=== PATIENT | female | born 1955 | race African-American/Black ===

== ENCOUNTER 2017-07-28 12:50 | Emergency (ER) | payer OTHER ==
[~2017-07-28] VITALS: Ht 162.6 cm; Wt 43.5 kg
[~2017-07-28 12:50] MED LIST: CARI350T PO; CIPR500T5 PO; DIAZ10TA4 PO; HYDR-548 PO; METR500T PO; PANT40TA4 PO
--- NOTE | 2017-07-28 12:59 | NUR ---
61 yo female bb self. patient is alert and oriented x 3, c/o abd pain. patient assisted to er bed, skin warm and dry, resp even and unlabored. awaiting orders from provider, will continue to monitor
[2017-07-28] MEDS ORDERED: DIAZEPAM 5 MG TABLET ONE (13:24)
[2017-07-28 13:26] LABS: BASOPHILS % (AUTO) 0.6 % (0.0-2.0); EOSINOPHILS % (AUTO) 0.7 % (0.0-6.0); HEMATOCRIT 36 % (33-45); HEMOGLOBIN 12.4 g/dL (11.5-14.8); LYMPHOCYTES # (AUTO) 1.7 /CMM (0.8-4.8); LYMPHOCYTES % (AUTO) 24.3 % (20.0-44.0); MEAN CORPUSCULAR HGB CONC 34 g/dl (31.0-36.0); MEAN CORPUSCULAR VOLUME 95 fL (82-100); MONOCYTES # (AUTO) 0.4 /CMM (0.1-1.30); MONOCYTES % (AUTO) 5.7 % (2.0-12.0); NEUTROPHILS # (AUTO) 4.8 /CMM (1.8-8.9); NEUTROPHILS % (AUTO) 68.7 % (43.0-81.0); PLATELET COUNT (AUTO) 266 /CMM (150-450); RDW COEFFICIENT OF VARIATION 13.4 (11.5-15.0); WHITE BLOOD COUNT (AUTO) 6.9 K/uL (4.3-11.0)
[2017-07-28 13:29] LABS: APPEARANCE,URINE Clear (CLEAR); BILIRUBIN,URINE Negative (NEGATIVE); BLOOD, URINE Negative Ery/uL (NEGATIVE); COLOR,URINE Yellow (YELLOW); KETONES,URINE Negative (NEGATIVE); LEUKOCYTE ESTERASE ,URINE Negative (NEGATIVE); NITRITE, URINE Negative (NEGATIVE); PH,URINE 8.5 (5.0-8.0); PROTEIN,URINE Negative (NEGATIVE); UGLUCOSE Negative (NEGATIVE); UROBILINOGEN,URINE 0.2 EU/dL (0.2)
[2017-07-28] MEDS ORDERED: DIAZEPAM 10 MG TABLET PO ONE (13:30)
[2017-07-28 13:39] LABS: CALCIUM, SERUM 8.9 mg/dL (8.5-10.1); CREATININE 0.8 mg/dL (0.6-1.3); POTASSIUM 3.7 mmol/L (3.5-5.1)
[2017-07-28 13:45] LABS: ALBUMIN 3.7 g/dL (3.4-5.0); BILIRUBIN,DIRECT 0.1 mg/dL (0.0-0.2); BILIRUBIN,TOTAL 0.2 mg/dL (0.2-1.0); TOTAL PROTEIN, SERUM 7.3 g/dL (6.4-8.2)
[2017-07-28 13:54] VITALS: BP 171/100
--- NOTE | 2017-07-28 13:55 | NUR ---
Patient discharged to home in stable condition. Written and verbal after care instructions given. Patient verbalizes understanding of instruction. pt ambulatory with a steady gait VITAL SIGNS WITHIN NORMAL LIMITS.
== END 2017-07-28 13:55 | disposition home or self-care (01) ==
LOC: ER 12:52
DX: R10.9 Unspecified abdominal pain (principal); F41.9 Anxiety disorder, unspecified; I10 Essential (primary) hypertension; J44.9 Chronic obstructive pulmonary disease, unspecified; I25.10 Atherosclerotic heart disease of native coronary artery without angina pectoris; F17.210 Nicotine dependence, cigarettes, uncomplicated; Z88.0 Allergy status to penicillin
CPT/HCPCS: 36415; 80048-TC; 80076-TC; 81000-TC; 85025-TC; A4606; Z7610

== ENCOUNTER 2019-02-04 06:34 | Emergency (ER) | payer OTHER ==
[~2019-02-04] VITALS: Ht 154.9 cm; Wt 43.1 kg
[~2019-02-04 06:34] MED LIST changes: +HYDR-4354 PO; -HYDR-548 PO
--- NOTE | 2019-02-04 06:40 | NUR ---
PT [id number] FROM HOME C/O COUGH AND NASAL CONGESTION X2 DAYS PER EMS. +EPITAXIS, -FEVER. PT WAS DISCHARGED RECENTLY AND DID NOT FILL HER PRESCRIPTION FOR VALIUM. PT APPEARS TO BE ANXIOUS. NAD NOTED. RESP EVEN AND UNLABORED. PT ON MONITOR IN BED 11. WILL CONTINUE TO MONITOR.
[2019-02-04] MEDS ORDERED: DIAZEPAM 5 MG TABLET ONE (06:46)
[2019-02-04] MEDS ORDERED: DIAZEPAM 10 MG TABLET PO ONE (07:00)
--- NOTE | 2019-02-04 07:13 | NUR ---
RECEIVED REPORT FROM JANET MISHRA FOR TOO, PT IS AAOX4, NOT IN RESPIRATORY DISTRESS, V/S STABLE, KEPT RESTED AND COMFORTABLE, WILL CONTINUE TO MONITOR.
--- NOTE | 2019-02-04 07:28 | NUR ---
PT WANTS TO WALKED OUT OF THE HOSPITAL, AWARE.
--- NOTE | 2019-02-04 07:33 | NUR ---
Patient eloped from facility. ER MD notified.
[2019-02-04 07:46] VITALS: BP 136/82
== END 2019-02-04 07:46 | disposition left against medical advice (07) ==
LOC: ER 06:35
DX: F41.9 Anxiety disorder, unspecified (principal); R04.0 Epistaxis; R00.2 Palpitations; J44.9 Chronic obstructive pulmonary disease, unspecified; I25.10 Atherosclerotic heart disease of native coronary artery without angina pectoris; I10 Essential (primary) hypertension; F17.210 Nicotine dependence, cigarettes, uncomplicated; F12.10 Cannabis abuse, uncomplicated; Z98.890 Other specified postprocedural states; Z88.0 Allergy status to penicillin

== ENCOUNTER 2021-05-13 09:26 | Inpatient (IN) | payer MEDICARE, OTHER ==
[~2021-05-13] VITALS: Ht 162.6 cm; Wt 43.1 kg
[~2021-05-13 09:26] MED LIST changes: -PANT40TA4 PO; +PANT40TA49 PO
--- NOTE | 2021-05-13 09:40 | NUR ---
TO ER BED 10, BIBRA FROM HOME C/O SUBSTERNAL CHEST PAIN STARTED LAST NIGHT THAT RADIATES TO LEFT ARM AND NECK P/S 12/01, GIVEN ASPIRIN AND NITRO BEST SECOND JOBS, UPON REASSESSMENT P/S 10/31, AAOX3, BREATHING EVEN AND NON LABORED, CONNECTED TO MONITOR, AWAITING MD ORDERS
[2021-05-13 10:08] LABS: BASOPHILS % (AUTO) 0.9 % (0.0-2.0); EOSINOPHILS % (AUTO) 2.6 % (0.0-6.0); HEMATOCRIT 38 % (33-45); HEMOGLOBIN 12.2 g/dL (11.5-14.8); LYMPHOCYTES # (AUTO) 1.3 K/uL (0.8-4.8); MEAN CORPUSCULAR HGB CONC 33 g/dl (31.0-36.0); MEAN CORPUSCULAR VOLUME 98 fL (82-100); MONOCYTES # (AUTO) 0.5 K/uL (0.1-1.30); MONOCYTES % (AUTO) 9.5 % (2.0-12.0); NEUTROPHILS # (AUTO) 2.9 K/uL (1.8-8.9); PLATELET COUNT (AUTO) 287 K/uL (150-450); RED BLOOD CELL COUNT(AUTO) 3.82 MIL/uL (4.0-5.2); WHITE BLOOD COUNT (AUTO) 4.9 K/uL (4.3-11.0)
--- NOTE | 2021-05-13 10:27 | NUR ---
MOVE SHEET SUBMITTED AND CALLED FOR TELE BED.
--- NOTE | 2021-05-13 10:34 | NUR ---
COVID SWAB DONE AND SENT TO LAB
[2021-05-13 10:41] LABS: CALCIUM, SERUM 8.5 mg/dL (8.5-10.1); CARBON DIOXIDE 27 mmol/L (21-32); CHLORIDE 104 mmol/L (98-107); CREATININE 0.8 mg/dL (0.6-1.3); GLUCOSE 94 mg/dL (74-106); POTASSIUM 3.6 mmol/L (3.5-5.1); SODIUM SERUM 138 mmol/L (136-145); UREA NITROGEN, BLOOD 12 mg/dL (7-18)
[2021-05-13] MEDS ORDERED: GABA-532 PO (11:15)
--- NOTE | 2021-05-13 12:51 | NUR ---
[facility] CALLED GEOLOGICAL SCOUT PAGED.
[2021-05-13] MEDS ORDERED: Z GUARD REMEDY 4 OZ OINT TP PRN (13:30)
[2021-05-13] MEDS ORDERED: DIAZEPAM 10 MG TABLET PO PRN (13:30)
[2021-05-13] MEDS ORDERED: MAGNESIUM HYDROXIDE 30 ML UDC PO PRN (13:30)
[2021-05-13] MEDS ORDERED: ACETAMINOPHEN 325 MG TABLET PO PRN (13:30)
[2021-05-13] MEDS ORDERED: ONDANSETRON HCL/PF 4 MG/2 ML VIAL IVP PRN (13:30)
[2021-05-13] MEDS ORDERED: ZOLPIDEM TARTRATE 5 MG TABLET PO PRN (13:30)
[2021-05-13] MEDS ORDERED: HYDROCODONE/APAP 10/325MG TABLET ONE (14:40)
[2021-05-13] MEDS: HYDROCODONE/APAP 10/325MG TABLET PO PRN (14:42)
--- NOTE | 2021-05-13 17:07 | NUR ---
DAUGHTERS: TANMAY [phone], YRN [phone]
--- NOTE | 2021-05-13 17:47 | NUR ---
US AT BEDSIDE
[2021-05-13] MEDS ORDERED: GABAPENTIN 300 MG CAPSULE ONE (18:04)
[2021-05-13] MEDS: GABAPENTIN 300 MG CAPSULE PO SCH (18:20)
--- NOTE | 2021-05-13 19:05 | NUR ---
GOT BED AFTER CHANGE OF SHIFT 320-2 PER HOUSE SUP.
[2021-05-13] MEDS: CARVEDILOL 3.125 MG TABLET PO SCH ×2 (21:00→21:22)
--- NOTE | 2021-05-13 22:27 | NUR ---
REPORT GIVEN TO JANET PRATT
--- NOTE | 2021-05-13 22:45 | NUR ---
PT TRANSFERRED UNDER ACLS
[2021-05-13 23:00] VITALS: BP 159/98
[2021-05-13] MEDS: MORPHINE SULFATE INJ 2 MG/ML DISP.SYRIN IV PRN (23:45)
--- NOTE | 2021-05-13 23:45 | NUR ---
VIDEO SOFTWARE ENGINEER NOTE Patient arrived to unit at 2245 via gurney accompanied by 2 staff members. Patient reports CP 6 or 7/10 currently that started 2 days ago, reports as burning sensation midchest extending to upper abdomen. Pupils equal and reactive to light. Can move all extremities evenly. Heart rate and rhythm regular. Attached to tele monitor promptly. Lung sounds clear. Bowel sounds active x4. Pt. has small tender bump not reddened or swollen on L inner thigh, thickened skin on scalp that pt. says she had been using a special shampoo for, and R trinh bruise upon skin assessment. Pt. is 95 pound and losing weight without trying d/t decreased appetite -requests FNS consult. Refuses all vaccines for fear of adverse effects. Reports being smoker less than a pack a day. Uses walker, cane at home. Agrees to bed rest. Oriented pt. to staff members, unit protocols, bed controls, remote, and safety precautions. Will continue to monitor.
[2021-05-14] VITALS: BP 159/98
[2021-05-14] MEDS: MAG HYDROX/AL HYDROX/SIMETH 30 ML UDC PO PRN ×2 (00:08→14:26)
--- NOTE | 2021-05-14 01:00 | NUR ---
Patient consented to CTCA and contrast -consent put in chart.
[2021-05-14 04:00] VITALS: BP 139/94
[2021-05-14] MEDS: MORPHINE SULFATE INJ 2 MG/ML DISP.SYRIN IV PRN ×2 (06:18→20:28)
--- NOTE | 2021-05-14 06:47 | NUR ---
RN CLOSING NOTES Patient continues to c/o chest pain overnight, though partially relieved with PRN morphine and bedrest. Has been SR 60s-70s on the monitor overnight. No other issues since admission. IS able to make needs known -all needs attended to by staff.
[2021-05-14 06:48] VITALS: BP 139/94
--- NOTE | 2021-05-14 06:51 | NUR ---
Has been NPO since 9 for AM procedure.
[2021-05-14 07:23] LABS: BASOPHILS # (AUTO) 0.1 K/uL (0.0-0.2); BASOPHILS % (AUTO) 0.9 % (0.0-2.0); HEMATOCRIT 40 % (33-45); HEMOGLOBIN 12.9 g/dL (11.5-14.8); LYMPHOCYTES # (AUTO) 1.9 K/uL (0.8-4.8); LYMPHOCYTES % (AUTO) 31.7 % (20.0-44.0); MEAN CORPUSCULAR HGB CONC 33 g/dl (31.0-36.0); MEAN CORPUSCULAR VOLUME 98 fL (82-100); MONOCYTES # (AUTO) 0.6 K/uL (0.1-1.30); MONOCYTES % (AUTO) 10.5 % (2.0-12.0); NEUTROPHILS # (AUTO) 3.3 K/uL (1.8-8.9); NEUTROPHILS % (AUTO) 54.9 % (43.0-81.0); PLATELET COUNT (AUTO) 293 K/uL (150-450); RED BLOOD CELL COUNT(AUTO) 4.04 MIL/uL (4.0-5.2)
--- NOTE | 2021-05-14 07:30 | NUR ---
ms rn received on bed, awake,alert,oriented x4,not in any form of distress, respirations even and unlabored,no sob noted, lungs are clear,abdomn soft,positive bowel sounds,denies pain at this time, will monitor patient.
[2021-05-14 07:57] LABS: CALCIUM, SERUM 9.5 mg/dL (8.5-10.1); CREATININE 0.8 mg/dL (0.6-1.3); PHOSPHORUS 3.6 mg/dL (2.5-4.9); POTASSIUM 4.2 mmol/L (3.5-5.1)
--- NOTE | 2021-05-14 08:30 | NUR ---
ms rn breakfast served,patient will have cta today w/ all papers ready.
[2021-05-14 08:35] VITALS: BP 145/95
--- NOTE | 2021-05-14 08:40 | NUR ---
ms rn patient went down for procedure.
[2021-05-14] MEDS ORDERED: METOPROLOL TARTRATE INJ 5 MG/5 ML AMPUL ONE (09:00)
[2021-05-14] MEDS ORDERED: ATORVASTATIN 10 MG TABLET PO SCH (09:00)
[2021-05-14] MEDS ORDERED: NITROGLYCERIN 0.4 MG/TAB BOTTLE ONE (09:00)
[2021-05-14] MEDS ORDERED: IV NS 0.9% 250 ML IV ONE (09:00)
[2021-05-14] MEDS ORDERED: NITROGLYCERIN 0.4 MG/TAB BOTTLE SL ONE (09:00)
[2021-05-14] MEDS ORDERED: ASPIRIN 81 MG TAB.CHEW PO SCH (09:00)
[2021-05-14] MEDS ORDERED: IOHEXOL-350 100 ML VIAL IV ONE (09:00)
[2021-05-14] MEDS ORDERED: CT SWABBABLE VALVE TRANS SET 1 EA INFUS.SET MC ONE (09:00)
[2021-05-14] MEDS: METOPROLOL TARTRATE INJ 5 MG/5 ML AMPUL IVP PRN ×2 (09:10→09:15)
--- NOTE | 2021-05-14 09:28 | NUR ---
CTA PROCEDURE WELL TOLERATED BY THE PT. V/S STABLE, KEPT RESTED AND COMFORTABLE. REPORT GIVEN TO JANET ROJAS FOR TOO.
[2021-05-14] MEDS: CARVEDILOL 3.125 MG TABLET PO SCH ×2 (09:56→20:07)
[2021-05-14] MEDS: HYDROCODONE/APAP 10/325MG TABLET PO PRN (14:27)
[2021-05-14 16:09] VITALS: BP 143/79
--- NOTE | 2021-05-14 16:20 | NUR ---
ms rn patient on bed, no distress noted.
[2021-05-14] MEDS: GABAPENTIN 300 MG CAPSULE PO SCH (18:50)
[2021-05-14 20:00] VITALS: BP 154/100
--- NOTE | 2021-05-14 20:35 | NUR ---
MS RN OPENING NOTES: RECEIVED PATIENT AWAKE IN BED, BED IN LOW POSITION, CALL LIGHTS WITHIN REACH, NO COMPLAIN OF PAIN AND DISCOMFORT AT THIS TIME,PATIENT IS A/OX4 ABLE TO MAKE NEEDS KNOWN, AMBULATORY WITH SUPERVISION, ON ROOM AIR NO RESP DISTRESS WAS OBSERVED, PATIENT KEPT CLEAN AND DRY, ALL NEEDS MET WILL CONTINUE TO MONITOR.
--- NOTE | 2021-05-15 07:11 | NUR ---
RN CLOSING NOTE PATIENT SLEEP IN BED COMFORTABLY, BED IN LOW POSITION, CALL LIGHTS WITHIN REACH, NO COMPLAIN OF PAIN AND DISCOMFORT AT THIS TIME, PATIENT IS AMBULATORY WITH SUPERVISION, REMIND PATIENT TO USE CALL LIGHTS, PATIENT IS A/O 4 ABLE TO MAKE NEEDS KNOWN, ON ROOM AIR SATURATING WELL. PATIENT KEPT CLEAN AND DRY, ALL NEEDS MET, ENDORSE TO INCOMING SHIFT.
--- NOTE | 2021-05-15 07:30 | NUR ---
MS RN OPENING NOTES: RECEIVED PATIENT AWAKE IN BED, BED IN LOW POSITION, CALL LIGHTS WITHIN REACH, NO COMPLAIN OF PAIN AND DISCOMFORT AT THIS TIME,PATIENT IS A/OX4 ABLE TO MAKE NEEDS KNOWN, AMBULATORY WITH STANDBY SUPERVISION, ON ROOM AIR NO ACUTE DISTRESS NOTED. SAFETY PRECAUTIONS IN PLACE: BED ON LOWEST LICKED POSITION. SIDE RAILS UP X 2, CALL LIGHT WITHIN EASY REACH. WILL CONTINUE TO MONITOR ACCORDINGLY.
[2021-05-15 08:00] VITALS: BP 132/89
[2021-05-15] MEDS ORDERED: hydrALAZINE HCL 50 MG TABLET PO SCH (09:00)
[2021-05-15] MEDS: ISOSORBIDE DINITRATE (20MG) 20 MG TABLET PO SCH ×2 (09:28→16:33)
[2021-05-15 10:05] VITALS: BP 95/55
--- NOTE | 2021-05-15 10:05 | NUR ---
RN NOTES PATIENT COMPLAINED OF DIZZINESS. BLOOD PRESSURE TAKEN, 95/55, INFORMED DR. COLUNGA WITH ORDER MADE AND CARRIED OUT.
[2021-05-15] MEDS: IV NS 0.9% 1,000 ML IV PRN ×2 (10:53→22:34)
[2021-05-15 11:15] VITALS: BP 105/55
--- NOTE | 2021-05-15 11:15 | NUR ---
RN NOTES RECHECKED BLOOD PRESSURE, 105/55.
--- NOTE | 2021-05-15 11:26 | NUR ---
RN NOTES PATIENT HAD AN EPISODE OF VOMITING. ZOFRAN GIVEN ORDERED.
--- NOTE | 2021-05-15 13:33 | NUR ---
RN NOTES PATIENT REQUESTED TO TAKE ONLY 1/2 TABLET OF VALIUM 10 MG. OVIDIO RIOS AWARE. REMAINING 1/2 TAB (5MG) WASTED, ANOTHER RN WITNESSED WASTE OF MEDICATION.
[2021-05-15 16:00] VITALS: BP 103/56
[2021-05-15] MEDS: GABAPENTIN 300 MG CAPSULE PO SCH (18:10)
--- NOTE | 2021-05-15 19:07 | NUR ---
MS RN CLOSING NOTES: PATIENT IN BED, ASLEEP, EASILY AWAKEN BY VERBAL AND TACTILE STIMULI. BED IN LOW POSITION, CALL LIGHTS WITHIN REACH, NO COMPLAIN OF PAIN AND DISCOMFORT AT THIS TIME,PATIENT IS A/OX4 ABLE TO MAKE NEEDS KNOWN, AMBULATORY WITH STANDBY SUPERVISION, ON ROOM AIR NO ACUTE DISTRESS NOTED. SAFETY PRECAUTIONS IN PLACE: BED ON LOWEST LICKED POSITION. SIDE RAILS UP X 2, CALL LIGHT WITHIN EASY REACH. WILL ENDORSE TO ONCOMING SHIFT FOR TOO.
--- NOTE | 2021-05-15 19:15 | NUR ---
RN NOTE PT RESTING IN BED, EASILY AROUSABLE, A/OX4. SHE DENIES PAIN AT THIS TIME. RESPIRATIONS EVEN/UNLABORED. ON ROOM AIR. IV SITE: LFA #20G INTACT/PATENT. PT IN NO ACUTE DISTRESS. SAFETY MEASURES IN PLACE, BED IN LOWEST LOCKED POSITION, S/R UPX2, CALL LIGHT WITHIN REACH. WILL CONT TO MONITOR.
[2021-05-15 20:00] VITALS: BP 116/63
--- NOTE | 2021-05-16 06:47 | NUR ---
RN NOTE PT RESTING IN BED, EASILY AROUSABLE TO STIMULI. ABLE TO VERBALIZE ALL NEEDS. VOIDS PER BEDPAN PER PT'S PREFERENCE. ASSISTED WITH ADL'S NEEDED. PT SLEPT WELL DURING THE NIGHT WITHOUT ANY DISTRESS NOTED. ALL NEEDS ATTENDED TO. SAFETY MEASURES MAINTAINED.
[2021-05-16] MEDS: IV NS 0.9% 1,000 ML IV PRN (07:24)
--- NOTE | 2021-05-16 07:41 | NUR ---
MS RN OPENING NOTES: RECEIVED Pt ASLEEP IN BED AND IS EASILY AROUSABLE. Pt NOLAN/Ox4 AND IS ABLE TO MAKE NEEDS KNOWN. Pt IS ON ROOM AIR AND TOLERATING WELL AT THIS TIME. NO COMPLAINTS OF PAIN OR SYMPTOMS OF DISCOMFORT AT THIS TIME. SAFETY PRECAUTIONS IN PLACE: BED IS LOCKED AND IN LOWEST POSITION. SIDE RAILS UP X 2, CALL LIGHT AND BEDSIDE TABLE ARE WITHIN EASY REACH. WILL CONTINUE TO MONITOR THROUGHOUT THE SHIFT
[2021-05-16 08:35] VITALS: BP 157/94
[2021-05-16] MEDS: ISOSORBIDE DINITRATE (20MG) 20 MG TABLET PO SCH ×2 (09:00→09:41)
--- NOTE | 2021-05-16 15:08 | NUR ---
MS RN NOTES: DISCHARGE Pt HAS BEEN DISCHARGED. SHE IS MEDICALLY STABLE. SHE IS A/Ox4. BREATHING IS EVEN AND UNLABORED ON ROOM AIR. NO COMPLAINTS OF PAIN AND NO SIGNS OF DISTRESS. IV ACCESS WAS REMOVED. Pt LEFT VIA CAR WITH FAMILY MEMBER.
== END 2021-05-16 15:15 | disposition home or self-care (01) | DRG 880 ==
LOC: ER 09:46 → TRANSITION 13:44 → TELE 22:10 → MED 05-14 09:36
PROVIDERS: ADMIT Nurse Practitioner Acute Care; ATTEND Nurse Practitioner Acute Care
DX: F41.9 Anxiety disorder, unspecified (principal); Z68.1 Body mass index [BMI] 19.9 or less, adult; E44.0 Moderate protein-calorie malnutrition; I10 Essential (primary) hypertension; J44.9 Chronic obstructive pulmonary disease, unspecified; F12.90 Cannabis use, unspecified, uncomplicated; G89.4 Chronic pain syndrome; Z98.890 Other specified postprocedural states; Y92.9 Unspecified place or not applicable; W34.00XA Accidental discharge from unspecified firearms or gun, initial encounter; D25.9 Leiomyoma of uterus, unspecified; Z88.0 Allergy status to penicillin; F17.210 Nicotine dependence, cigarettes, uncomplicated; Z79.899 Other long term (current) drug therapy; R63.4 Abnormal weight loss
CPT/HCPCS: 36415; 71045-TC; 75574; 80048-TC; 80061-TC; 83735-TC; 83880; 84100-TC; 84484-TC; 85025-TC; 87081-TC; 93307-TC; 97112-TC; 97116-TC; 97530-TC; C9803; G0378; J2270; J2405; J3490; J7030; J7050; Q9967